=== PATIENT | female | born 1975 | race Caucasian/White ===

== ENCOUNTER → 2017-04-02 | Outpatient (CLI) | payer OTHER ==
--- NOTE | 2017-04-02 11:35 | Diagnostic Imaging Report ---
PROCEDURE: CT urinary tract, rule out kidney stone. TECHNIQUE: Multiple contiguous axial images were obtained through the abdomen and pelvis without the use of intravenous contrast. INDICATION: Hematuria. Stone search. FINDINGS: The lung bases appear clear. The liver, the spleen, the pancreas, and adrenals appear unremarkable. The kidneys demonstrate no hydronephrosis and no stones. No ureteric or bladder stones. Cholecystectomy clips are seen. The abdominal aorta is normal in caliber. No para-aortic significantly enlarged lymph nodes are seen. The uterus and adnexa appear grossly unremarkable. There is no bowel obstruction. The appendix appears normal. The osseous structures demonstrate degenerative changes with vacuum phenomenon at the SI joints. IMPRESSION: No urinary tract stones or hydronephrosis. Dictated by: Dictated on workstation # [id number]
== END ==
LOC: RAD 07:51
PROVIDERS: ATTEND Urology
DX: R31.9 Hematuria, unspecified (principal)
CPT/HCPCS: 74176

== ENCOUNTER → 2019-04-30 | Outpatient (CLI) | payer BC, MEDICAID ==
--- NOTE | 2019-04-30 11:38 | Diagnostic Imaging Report ---
INDICATION: Fall with left ankle injury and pain. TIME OF EXAM: 10:36 AM 3 views of the left ankle were obtained. Alignment is normal. Ankle mortise is well maintained. Talar dome is smooth. No fracture or dislocation is identified. There is a large plantar calcaneal spur. IMPRESSION: No acute bony abnormality is detected. Dictated by: Dictated on workstation # [id number]
== END ==
LOC: RAD FS 10:11
PROVIDERS: ATTEND Nurse Practitioner Family
DX: M25.572 Pain in left ankle and joints of left foot (principal)
CPT/HCPCS: 73610

== ENCOUNTER → 2022-06-15 | Outpatient (CLI) | payer BC, MEDICAID ==
--- NOTE | 2022-06-15 14:22 | Diagnostic Imaging Report ---
EXAMINATION: Lumbar spine radiographs, 3 views. COMPARISON: None. HISTORY: 47-year-old female, low back pain. FINDINGS: There are right upper quadrant surgical clips most likely reflecting prior cholecystectomy. There are 5 lumbar-type vertebral bodies. The alignment of lumbar spine is unremarkable. There is moderate to severe disc height loss at L5-S1. There is mild disc height loss at L4-L5. There are very mild endplate degenerative changes at L1-L2 and L2-L3. There is no identified compression deformity or fracture. The facet joints appear unremarkable. Unremarkable appearance of the bilateral sacroiliac joints. IMPRESSION: 1. Multilevel disc degenerative changes of the lumbar spine with disc height loss most notable at L5-S1. 2. No identified compression deformity or fracture. Dictated by: Dictated on workstation # [id number]
--- NOTE | 2022-06-15 15:40 | Diagnostic Imaging Report ---
INDICATION: Pain. EXAMINATION: Pelvis from 06/15/2022. FINDINGS: Two views of the pelvis. There are clips in the mid aspect of the pelvis. There are no acute fractures or dislocations within the sacrum or visualized hips. Minimal step-off deformity is seen along the distal coccyx, age indeterminate. IMPRESSION: 1. Age-indeterminate mild step-off deformity of the distal coccyx. Remaining pelvis is unremarkable. Dictated by: Dictated on workstation # [id number]
== END ==
LOC: RAD FS 12:34
PROVIDERS: ATTEND Nurse Practitioner Family
DX: M43.8X8 Other specified deforming dorsopathies, sacral and sacrococcygeal region (principal); M47.816 Spondylosis without myelopathy or radiculopathy, lumbar region; M47.817 Spondylosis without myelopathy or radiculopathy, lumbosacral region; W10.9XXA Fall (on) (from) unspecified stairs and steps, initial encounter
CPT/HCPCS: 72100; 72170